=== PATIENT | female | born 1940 | race Caucasian/White ===

== ENCOUNTER 2017-06-10 11:20 | Emergency (ER) | payer OTHER ==
[~2017-06-10] VITALS: Ht 167.6 cm; Wt 56.7 kg
--- NOTE | ~2017-06-10 | EKG ---
[address] [address] ELECTROCARDIOGRAM REPORT Name: NUHA HERNANDEZ Room #: DEP [facility]#: [id number] Admission: 06/10/17 Attend Phys: Discharge: 06/10/17 Date of : 36 Report #: [id number] THIS REPORT FOR: //name// [facility] ED Test Date: 2017-06-10 Test Time: 11:48:52 Pat Name: NUHA HERNANDEZ Department: Room: Gender: F Barytes Grinder: : 1940 Requested By: Charla Howard Order Number: [id number] MD: Solomon Decker Measurements Intervals [place] Rate: 62 P: -18 NC: 156 QRS: 22 QRSD: 97 T: 47 QT: 419 QTc: 426 Interpretive Statements Sinus rhythm Low voltage, extremity and precordial leads No previous ECG available for comparison Electronically Signed On 06-10-2017 15:23:10 CDT by Solomon Decker [email or web address] <ELECTRONICALLY SIGNED> By: Solomon Decker MD 06/10/17 1523 [id number] [id number] MD SIMEON Tejada
[2017-06-10 11:56] LABS: HEMATOCRIT 37.7 % (37.0-47.0)
[2017-06-10 11:57] LABS: ABSOLUTE NEUTROPHILS 3.9 thou/uL (1.4-8.2); BASOPHILS 0.6 % (0.0-2.0); EOSINOPHILS 1.8 % (0.0-3.0); HEMOGLOBIN 12.6 gm/dL (12.0-15.0); LYMPHOCYTES 44.1 % (24.0-44.0); MCH 30.8 pg (26.0-34.0); MCHC 33.3 g/dL (28.0-37.0); MCV 92.6 fL (80.0-100.0); MONOCYTES 5.6 % (1.0-8.0); PLATELET COUNT 194 thou/uL (150-400); POLYS 47.9 % (36.0-66.0); RBC 4.07 mil/uL (4.20-5.00); RDW 13.6 % (10.5-14.5); WBC 8.2 thou/uL (4.0-11.0)
[2017-06-10 12:03] LABS: ANION GAP 8 mmol/L (7-16); BUN 25 mg/dL (7-18); CALCIUM 9.4 mg/dL (8.5-10.1); CHLORIDE 104 mmol/L (98-107); CO2 28 mmol/L (21-32); CREATININE 0.9 mg/dL (0.6-1.0); GLUCOSE 96 mg/dL (74-106); POTASSIUM 4.1 mmol/L (3.5-5.1); SODIUM 140 mmol/L (136-145)
[2017-06-10 12:05] LABS: MANUAL DIFF NO
[2017-06-10 12:11] LABS: PROTIME 9.9 Seconds (9.3-11.4)
[2017-06-10 12:12] LABS: ALKALINE PHOSPHATASE 69 U/L (46-116); SGOT 17 U/L (15-37); SGPT 18 U/L (30-65); TOTAL BILIRUBIN 0.8 mg/dL (<0.1-1.0); TOTAL PROTEIN 6.9 g/dL (6.4-8.2); TROPONIN-I < 0.04 ng/mL (<0.04-0.07)
[2017-06-10 14:07] VITALS: BP 146/68
== END 2017-06-10 14:30 | disposition home or self-care (01) ==
LOC: ER 11:20
PROVIDERS: Physician Assistant
DX: S01.01XA Laceration without foreign body of scalp, initial encounter (principal); R55 Syncope and collapse; E78.5 Hyperlipidemia, unspecified; Z90.710 Acquired absence of both cervix and uterus; W18.09XA Striking against other object with subsequent fall, initial encounter; Y93.89 Activity, other specified; Y92.002 Bathroom of unspecified non-institutional (private) residence as the place of occurrence of the external cause; Y99.8 Other external cause status